=== PATIENT | male | born 1940 | race Caucasian/White ===

== ENCOUNTER 2022-03-14 09:07 | Outpatient (REF) | payer MEDICARE, SELFPAY ==
[2022-03-14 15:09] LABS: HCT 43.8 % (40.0-50.0)
[2022-03-14 15:36] LABS: Anion Gap 10.2 mmol/L (3-11); BUN 30 mg/dL (7-18); CO2 26.8 mmol/L (21.0-32.0); CREATININE 1.3 mg/dL (0.70-1.30); Calcium 9.4 mg/dL (8.5-10.1); Calculated LDL 117 mg/dL (<100); Chloride 105 mmol/L (98-107); Cholesterol 181 mg/dL (<200); Estimated GFR 53.12 (mL/min/1.73m2); Glucose 285 mg/dL (74-106); HDL Cholesterol 38 mg/dL (40-60); Potassium 4.5 mmol/L (3.5-5.1); Sodium 142 mmol/L (136-145); TSH (W/Ref FT4) 0.13 uIU/mL (0.36-3.74); Triglyceride 130 mg/dL (<150)
== END 2022-03-14 09:08 | disposition home or self-care (01) ==
LOC: NCHCN 09:07
PROVIDERS: PCP Family Medicine; Visit Provider Family Medicine
DX: I10 Essential (primary) hypertension (principal); E11.9 Type 2 diabetes mellitus without complications; E78.5 Hyperlipidemia, unspecified; R53.83 Other fatigue
CPT/HCPCS: 80048; 80061; 84439; 84443; 85014; 85018

== ENCOUNTER 2024-03-18 10:17 | Outpatient (REF) | payer MEDICARE, SELFPAY | END 2024-03-18 10:18 | disposition home or self-care (01) | LOC: NCHCN 10:17 | PROVIDERS: PCP Family Medicine; Visit Provider Family Medicine | DX: S81.801A Unspecified open wound, right lower leg, initial encounter (principal); X58.XXXA Exposure to other specified factors, initial encounter | CPT/HCPCS: 87077; 87070; 87186; 87205 ==

== ENCOUNTER 2024-10-04 10:24 | Outpatient (REF) | payer MEDICARE, SELFPAY ==
[2024-10-04 16:13] LABS: Anion Gap 8.8 mmol/L (3-11); BUN 27 mg/dL (7-18); CO2 28.2 mmol/L (21.0-32.0); CREATININE 1.4 mg/dL (0.70-1.30); Calcium 9.4 mg/dL (8.5-10.1); Chloride 106 mmol/L (98-107); Estimated GFR 49.87 (mL/min/1.73m2); Glucose 249 mg/dL (74-106); Potassium 5.1 mmol/L (3.5-5.1); Sodium 143 mmol/L (136-145)
[2024-10-04 16:23] LABS: Hemoglobin A1C 8.9 % (<5.7)
== END 2024-10-04 10:25 | disposition home or self-care (01) ==
LOC: NCHCN 10:24
PROVIDERS: PCP Family Medicine; Visit Provider Family Medicine
DX: E11.9 Type 2 diabetes mellitus without complications (principal)
CPT/HCPCS: 80048; 83036